=== PATIENT | male | born 1990 | race Caucasian/White ===

== ENCOUNTER 2016-07-20 14:28 | Emergency (ER) | payer MEDICAID ==
[~2016-07-20] VITALS: Ht 185.4 cm; Wt 78.0 kg
[2016-07-20] MEDS ORDERED: OLAN10TA3 PO (14:47)
[2016-07-20] MEDS ORDERED: LORAZEPAM 1MG TABLET PO ONE (15:45)
[2016-07-20] MEDS ORDERED: LORAZEPAM 1MG TABLET PO NR (17:45)
[2016-07-20] MEDS ORDERED: LORAZEPAM 2MG/ML CPJ IM STA (21:09)
[2016-07-20] MEDS ORDERED: HALOPERIDOL LACTATE 5MG/ML VIAL IM STA (21:09)
[2016-07-20 22:50] VITALS: BP 124/80
[2016-07-20 22:51] LABS: CLARITY URINE CLEAR (CLEAR); COLOR URINE YELLOW (YELLOW); GLUCOSE URINE NEGATIVE (NEGATIVE); KETONES URINE NEGATIVE (NEGATIVE); LEUKOCYTE ESTERASE URINE NEGATIVE (NEGATIVE); NITRITE URINE NEGATIVE (NEGATIVE); OCCULT BLOOD URINE NEGATIVE (NEGATIVE); PH URINE 5.5 (4.5-8.0); PROTEIN URINE NEGATIVE (NEGATIVE); SPECIFIC GRAVITY URINE 1.009 (1.005-1.030); UROBILINOGEN URINE 0.2 E.U./dL (0.2-1.0)
[2016-07-20 23:05] LABS: *AMPHETAMINES SCREEN URINE NEGATIVE (NEGATIVE); *BARBITURATES SCREEN URINE NEGATIVE (NEGATIVE); *BENZODIAZEPINES SCREEN URINE NEGATIVE (NEGATIVE); *COCAINE SCREEN URINE NEGATIVE (NEGATIVE); CANNABINOID URINE SCREEN NEGATIVE (NEGATIVE); ECSTASY MDMA SCREEN URINE NEGATIVE (NEGATIVE); METHADONE URINE SCREEN NEGATIVE (NEGATIVE); OPIATES URINE SCREEN NEGATIVE (NEGATIVE); PHENCYCLIDINE URINE SCREEN NEGATIVE (NEGATIVE)
== END 2016-07-20 23:40 | disposition left against medical advice (07) ==
LOC: ER 14:29
DX: F41.0 Panic disorder [episodic paroxysmal anxiety] (principal); F41.9 Anxiety disorder, unspecified; F22 Delusional disorders
CPT/HCPCS: 80305; 81003; 82962; 99284